=== PATIENT | female | born 1970 | race African-American/Black ===

== ENCOUNTER 2017-02-28 10:12 | Emergency (ER) | payer MEDICAID, OTHER ==
[~2017-02-28] VITALS: Ht 165.1 cm; Wt 100.0 kg
[2017-02-28] MEDS ORDERED: LOSA25TA12 PO (10:22)
[2017-02-28] MEDS ORDERED: KETOROLAC 60MG/2ML VIAL IM ONE (12:00)
[2017-02-28 12:36] VITALS: BP 186/91
== END 2017-02-28 15:40 | disposition home or self-care (01) ==
LOC: ER 10:56
DX: S83.91XA Sprain of unspecified site of right knee, initial encounter (principal); I10 Essential (primary) hypertension; F12.10 Cannabis abuse, uncomplicated; Z88.8 Allergy status to other drugs, medicaments and biological substances; Z79.899 Other long term (current) drug therapy; Z90.710 Acquired absence of both cervix and uterus; W01.0XXA Fall on same level from slipping, tripping and stumbling without subsequent striking against object, initial encounter; Y93.89 Activity, other specified; Y92.89 Other specified places as the place of occurrence of the external cause; Y99.8 Other external cause status
CPT/HCPCS: 73562; 96372; 99284; J1885; L1830; Z7610

== ENCOUNTER 2017-04-10 08:47 | Emergency (ER) | payer MEDICAID ==
[~2017-04-10] VITALS: Ht 162.6 cm; Wt 93.0 kg
[~2017-04-10 08:47] MED LIST: LOSA25TA12 PO
[2017-04-10 09:03] VITALS: BP 178/94
[2017-04-10] MEDS ORDERED: ACETAMINOPHEN 325MG TABLET PO ONE (10:45)
== END 2017-04-10 13:22 | disposition home or self-care (01) ==
LOC: ER 10:07
DX: M79.644 Pain in right finger(s) (principal); I10 Essential (primary) hypertension; K21.9 Gastro-esophageal reflux disease without esophagitis; Z88.6 Allergy status to analgesic agent; F12.10 Cannabis abuse, uncomplicated
CPT/HCPCS: 29125; 73130; 99284

== ENCOUNTER 2019-02-16 10:34 | Emergency (ER) | payer MEDICAID ==
[~2019-02-16] VITALS: Ht 165.1 cm; Wt 90.0 kg
[2019-02-16] MEDS ORDERED: ALBUTEROL (0.083%) 2.5MG/3ML NEB HHN STA (11:33)
[2019-02-16] MEDS ORDERED: IPRATROPIUM BROMIDE (0.02%) 0.5MG/2.5ML NEB HHN STA (11:33)
[2019-02-16] MEDS ORDERED: KETOROLAC 60MG/2ML VIAL IM ONE (11:45)
[2019-02-16 12:15] VITALS: BP 136/88
== END 2019-02-16 12:20 | disposition home or self-care (01) ==
LOC: ER 10:34
DX: J20.9 Acute bronchitis, unspecified (principal); I10 Essential (primary) hypertension; F12.10 Cannabis abuse, uncomplicated; Z79.899 Other long term (current) drug therapy; Z88.6 Allergy status to analgesic agent; Z90.710 Acquired absence of both cervix and uterus
CPT/HCPCS: 81025; 96372; 99283; J1885; J7611

== ENCOUNTER 2022-06-02 22:04 | Emergency (ER) | payer MEDICAID ==
[~2022-06-02] VITALS: Ht 170.2 cm; Wt 80.0 kg
[~2022-06-02 22:04] MED LIST changes: -LOSA25TA12 PO; +LOSA25TA26 PO
[2022-06-03] MEDS ORDERED: TRAMADOL 50MG TABLET PO ONE (03:45)
[2022-06-03] MEDS ORDERED: ONDANSETRON 4MG ODT PO ONE (03:45)
[2022-06-03 04:09] VITALS: BP 140/85
[2022-06-03 04:21] LABS: CLARITY URINE CLEAR (CLEAR); COLOR URINE YELLOW (YELLOW); KETONES URINE NEGATIVE (NEGATIVE); LEUKOCYTE ESTERASE URINE NEGATIVE (NEGATIVE); NITRITE URINE NEGATIVE (NEGATIVE); OCCULT BLOOD URINE NEGATIVE (NEGATIVE); PROTEIN URINE NEGATIVE (NEGATIVE); SPECIFIC GRAVITY URINE 1.023 (1.005-1.030)
[2022-06-03 04:45] LABS: CHLORIDE 103 mEq/L (98-107)
[2022-06-03] MEDS ORDERED: METFORMIN HCL 500MG TABLET PO NR (05:30)
[2022-06-03] MEDS ORDERED: INSULIN REGULAR (HUMULIN R) 300UNITS/3ML VIAL SUBCUT NR (05:30)
[2022-06-03] MEDS ORDERED: METF-416 MT (06:13)
== END 2022-06-03 06:37 | disposition home or self-care (01) ==
LOC: ER 22:04
DX: E11.65 Type 2 diabetes mellitus with hyperglycemia (principal); I10 Essential (primary) hypertension; Z90.710 Acquired absence of both cervix and uterus; F12.10 Cannabis abuse, uncomplicated
CPT/HCPCS: 36415; 80048; 81003; 82962; 96372; 99284; J1815; Q0162

== ENCOUNTER 2025-04-25 19:20 | Emergency (ER) | payer BC, MEDICAID ==
[~2025-04-25] VITALS: Ht 162.6 cm; Wt 84.3 kg
[~2025-04-25 19:20] MED LIST changes: +METF-416 MT
[2025-04-25 19:23] VITALS: O2SAT 100
[2025-04-25] MEDS ORDERED: AMOX1TAB16 MT (20:36)
[2025-04-25 21:34] VITALS: BP 184/99; PULSE 77; RESP 19; TEMP 37.1; O2SAT 100
== END 2025-04-25 21:36 | disposition home or self-care (01) ==
LOC: ER 20:04
DX: K04.7 Periapical abscess without sinus (principal); I10 Essential (primary) hypertension; E11.9 Type 2 diabetes mellitus without complications; F12.90 Cannabis use, unspecified, uncomplicated; Z79.84 Long term (current) use of oral hypoglycemic drugs; Z90.710 Acquired absence of both cervix and uterus; Z79.899 Other long term (current) drug therapy; Z88.6 Allergy status to analgesic agent
CPT/HCPCS: 99283